=== PATIENT | male | born 1965 | race Caucasian/White ===

== ENCOUNTER 2020-11-02 19:42 | Emergency (ER) | payer SELFPAY ==
[~2020-11-02] VITALS: Ht 165.1 cm; Wt 86.6 kg
[2020-11-02 20:02] VITALS: BP 146/81; Ht 165.1 cm; Wt 86.6 kg
== END 2020-11-02 21:09 | disposition home or self-care (01) ==
LOC: ED 19:42
DX: R51.9 Headache, unspecified (principal); Z90.49 Acquired absence of other specified parts of digestive tract